=== PATIENT | female | born 1960 | race Two or more races ===

== ENCOUNTER 2019-11-25 19:10 | Inpatient (IN) | payer MEDICAID, OTHER ==
[~2019-11-25] VITALS: Ht 165.1 cm; Wt 81.7 kg
[2019-11-25 20:03] LABS: Urine WBC None Seen /hpf (0 - 5)
[2019-11-25 20:11] LABS: Urine Bacteria NONE SEEN /hpf (None Seen); Urine Blood 1+ /uL (Negative); Urine Mucus FEW (None Seen); Urine Specific Gravity 1.023 (1.001-1.035)
[2019-11-25] MEDS ORDERED: MORPHINE SULFATE 4 MG/ML SYR/VIAL IV ONE (21:15)
[2019-11-25] MEDS ORDERED: ONDANSETRON HCL 4 MG/2 ML VIAL IV ONE (21:15)
[2019-11-25] MEDS ORDERED: SODIUM CHLORIDE 0.9% 1,000 ML IV ONE (21:15)
[2019-11-25 22:19] LABS: Basophils # (auto) 0 10 ^3/uL (0-0.2); Basophils % (auto) 0.2 % (0.0-2.0); Eosinophils # (auto) 0 10 ^3/uL (0-0.8); Hematocrit 37.5 % (36.0-46.0); Hemoglobin 12.3 g/dL (12.2-16.2); Lymphocytes # (auto) 2.4 10 ^3/uL (0.4-5.4); Lymphocytes % (auto) 16.1 % (10.0-50.0); Mean Corpuscular Hgb Conc. 32.7 g/dL (32.0-36.0); Mean Corpuscular Volume 91.9 fL (80.0-100.0); Monocytes # (auto) 1.3 10 ^3/uL (0-1.3); Monocytes % (auto) 8.6 % (0.0-12.0); Neutrophils # (auto) 11.1 10 ^3/uL (1.6-8.6); Neutrophils % (auto) 75.1 % (37.0-80.0); Platelet Count (auto) 211 10^3/uL (140-450); Red Blood Cells 4.08 10^6/uL (4.0-5.20); Red Cell Distribution Width 15.3 % (11.8-14.3); White Blood Cell 14.8 10^3/uL (4.4-10.8)
[2019-11-25 22:40] LABS: Albumin 3.2 g/dL (3.4-5.0); Calcium 8.1 mg/dL (8.5-10.1); Potassium 3.6 mmol/L (3.5-5.1)
[2019-11-25 22:44] LABS: BUN/Creatinine Ratio 10.5; Bilirubin, Total 0.7 mg/dL (0.2-1.0); Total Protein 6.9 g/dL (6.4-8.2)
[2019-11-25] MEDS ORDERED: cefTRIAXone 1GM/50ML D5W 50 ML IV ONE (23:00)
[2019-11-25] MEDS ORDERED: metroNIDAZOLE 500MG/100ML 100 ML IV ONE (23:00)
[2019-11-25] MEDS ORDERED: HYDROcodone-ACET 5/325MG TAB PO PRN (23:30)
[2019-11-25] MEDS ORDERED: SODIUM CHLORIDE 0.9% 1,000 ML IV SCH ×2 (23:30)
[2019-11-25] MEDS ORDERED: TEMAZEPAM 15 MG CAP PO PRN (23:30)
[2019-11-25] MEDS ORDERED: LORazepam 0.5 MG TAB PO PRN (23:30)
[2019-11-25] MEDS ORDERED: DOCUSATE SOD 100 MG CAP PO PRN (23:30)
[2019-11-26] VITALS (7 sets, daily range): BP systolic 112–138; BP diastolic 54–71
[2019-11-26] MEDS: MORPHINE SULF INJ 2 MG/ML SYRINGE 1ML IV PRN ×2 (01:02→05:31)
[2019-11-26] MEDS: ONDANSETRON HCL 4 MG/2 ML VIAL IV PRN ×2 (01:02→05:25)
[2019-11-26] MEDS: ACETAMINOPHEN 325 MG TAB PO PRN (05:10)
[2019-11-26] MEDS: metroNIDAZOLE 500MG/100ML 100 ML IV SCH ×4 (05:31→23:44)
[2019-11-26 06:00] LABS: Basophils # (auto) 0 10 ^3/uL (0-0.2); Basophils % (auto) 0.2 % (0.0-2.0); Eosinophils # (auto) 0 10 ^3/uL (0-0.8); Hematocrit 36.2 % (36.0-46.0); Hemoglobin 11.9 g/dL (12.2-16.2); Lymphocytes # (auto) 2.6 10 ^3/uL (0.4-5.4); Lymphocytes % (auto) 15.7 % (10.0-50.0); Mean Corpuscular Hemoglobin 29.9 pg (28.0-32.0); Mean Corpuscular Hgb Conc. 32.7 g/dL (32.0-36.0); Mean Corpuscular Volume 91.4 fL (80.0-100.0); Monocytes % (auto) 6.1 % (0.0-12.0); Neutrophils # (auto) 12.7 10 ^3/uL (1.6-8.6); Platelet Count (auto) 213 10^3/uL (140-450); Red Blood Cells 3.96 10^6/uL (4.0-5.20); White Blood Cell 16.3 10^3/uL (4.4-10.8)
[2019-11-26 06:23] LABS: Calcium 7.8 mg/dL (8.5-10.1); Potassium 3.5 mmol/L (3.5-5.1)
[2019-11-26 06:26] LABS: BUN/Creatinine Ratio 11.5
[2019-11-26 06:56] LABS: Urine Bacteria FEW /hpf (None Seen); Urine Blood 1+ /uL (Negative); Urine Mucus FEW (None Seen); Urine Specific Gravity 1.018 (1.001-1.035); Urine WBC 19 /hpf (0 - 5)
[2019-11-26] MEDS: D5W/SOD CHL 0.45%/KCL 20MEQ 1,000 ML IV SCH ×2 (07:26→16:38)
[2019-11-26 07:40] LABS: INR 1.05 (0.9-1.15); Partial Thromboplastin Time 28.3 sec (23.0-31.2)
[2019-11-26] MEDS: cefTRIAXone 1GM/50ML D5W 50 ML IV SCH (09:05)
[2019-11-26] MEDS ORDERED: SUCCINYLCHOLINE CHLORIDE 20 MG/ML 10ML VIAL IV ONE (10:03)
[2019-11-26] MEDS ORDERED: MIDAZOLAM HCL 1MG/1ML-2 ML VIAL ONE (10:05)
[2019-11-26] MEDS ORDERED: fentaNYL CITRATE 100 MCG/2 ML VL ONE (10:05)
[2019-11-26] MEDS ORDERED: PROPOFOL 10 MG/ML 20 ML IV ONE (10:06)
[2019-11-26] MEDS ORDERED: ROCURONIUM 10MG/ML 10ML VIAL IV ONE (10:08)
[2019-11-26] MEDS ORDERED: ONDANSETRON HCL 4 MG/2 ML VIAL ONE (10:45)
[2019-11-26] MEDS ORDERED: GLYCOPYRROLATE 0.2 MG/ML 1ML VIAL ONE (10:56)
[2019-11-26] MEDS ORDERED: NEOSTIGMINE 1 MG/ML INJ (10mg/10ML VIAL) ONE (10:56)
[2019-11-26] MEDS ORDERED: HYDROmorphone HCL 2 MG/ML VL ONE (11:21)
[2019-11-26] MEDS: HYDROmorphone HCL 2 MG/ML VL IV PRN ×2 (11:22→11:57)
[2019-11-26] MEDS ORDERED: LABETALOL HCL 5 MG/ML 4ML SYRINGE IV PRN (11:30)
[2019-11-26] MEDS ORDERED: METOCLOPRAMIDE HCL 5MG/ml INJ 2ml VIAL IV PRN (11:30)
[2019-11-26] MEDS: FAMOTIDINE 20 MG TAB PO SCH (22:18)
[2019-11-27] MEDS: D5W/SOD CHL 0.45%/KCL 20MEQ 1,000 ML IV SCH ×2 (03:05→09:12)
[2019-11-27] MEDS: MORPHINE SULF INJ 2 MG/ML SYRINGE 1ML IV PRN (03:52)
[2019-11-27 05:00] VITALS: BP 110/56
[2019-11-27] MEDS: metroNIDAZOLE 500MG/100ML 100 ML IV SCH ×3 (05:54→17:08)
[2019-11-27] MEDS ORDERED: LORazepam 2MG/ML-1ML VIAL IV ONE (07:00)
[2019-11-27] MEDS ORDERED: ALBUTEROL SULF 2.5 MG/0.5ML(0.5%) NEB SOLN NEB PRN (07:00)
[2019-11-27] MEDS ORDERED: IPRATROPIUM BROM 0.5 MG/2.5ML INH SOL NEB PRN (07:00)
[2019-11-27 09:00] VITALS: BP 110/71
[2019-11-27] MEDS: ACETAMINOPHEN 325 MG TAB PO PRN ×2 (09:11→21:15)
[2019-11-27] MEDS: cefTRIAXone 1GM/50ML D5W 50 ML IV SCH (09:11)
[2019-11-27] MEDS: FAMOTIDINE 20 MG TAB PO SCH ×2 (09:11→21:14)
[2019-11-27] MEDS ORDERED: POTASSIUM CHL 20 Meq TABLET PO ONE (11:00)
[2019-11-27] MEDS ORDERED: FUROSEMIDE 20 MG/2 ML VIAL IV ONE (11:00)
[2019-11-27 13:00] VITALS: BP 116/60
[2019-11-27 13:23] VITALS: BP 110/64
[2019-11-27 17:00] VITALS: BP 119/68
[2019-11-27] MEDS: ONDANSETRON HCL 4 MG/2 ML VIAL IV PRN (21:15)
[2019-11-27 22:00] VITALS: BP 125/70
[2019-11-28] MEDS: metroNIDAZOLE 500MG/100ML 100 ML IV SCH ×4 (00:39→17:41)
[2019-11-28 05:00] VITALS: BP 113/72
[2019-11-28 06:06] LABS: Basophils # (auto) 0 10 ^3/uL (0-0.2); Basophils % (auto) 0.4 % (0.0-2.0); Eosinophils # (auto) 0 10 ^3/uL (0-0.8); Eosinophils % (auto) 0.1 % (0.0-7.0); Hematocrit 35.3 % (36.0-46.0); Hemoglobin 11.8 g/dL (12.2-16.2); Lymphocytes % (auto) 17.5 % (10.0-50.0); Mean Corpuscular Hemoglobin 30.5 pg (28.0-32.0); Mean Corpuscular Hgb Conc. 33.3 g/dL (32.0-36.0); Mean Corpuscular Volume 91.5 fL (80.0-100.0); Monocytes # (auto) 0.6 10 ^3/uL (0-1.3); Monocytes % (auto) 5.6 % (0.0-12.0); Neutrophils # (auto) 8.8 10 ^3/uL (1.6-8.6); Neutrophils % (auto) 76.4 % (37.0-80.0); Nucleated Red Blood Cells % 0.1 %; Platelet Count (auto) 191 10^3/uL (140-450); Red Blood Cells 3.86 10^6/uL (4.0-5.20); Red Cell Distribution Width 15.5 % (11.8-14.3); White Blood Cell 11.6 10^3/uL (4.4-10.8)
[2019-11-28 06:17] LABS: Potassium 3.1 mmol/L (3.5-5.1)
[2019-11-28 06:29] LABS: BUN/Creatinine Ratio 16.4; Calcium 8.4 mg/dL (8.5-10.1)
[2019-11-28 09:00] VITALS: BP 121/74
[2019-11-28] MEDS: cefTRIAXone 1GM/50ML D5W 50 ML IV SCH (09:03)
[2019-11-28] MEDS: FAMOTIDINE 20 MG TAB PO SCH (09:03)
[2019-11-28] MEDS ORDERED: POTASSIUM CHL 20 Meq TABLET PO ONE ×2 (09:45→18:00)
[2019-11-28] MEDS ORDERED: FUROSEMIDE 40 MG/4 ML VIAL IV ONE (09:45)
[2019-11-28] MEDS ORDERED: ALBUTEROL SULF 2.5 MG/0.5ML(0.5%) NEB SOLN NEB SCH ×2 (10:00→22:00)
[2019-11-28] MEDS ORDERED: ACETYLCYSTEINE 10 %(100MG/ML) SOL 4ML NEB SCH ×2 (10:00→14:00)
[2019-11-28] MEDS: ONDANSETRON HCL 4 MG/2 ML VIAL IV PRN (10:19)
[2019-11-28 13:00] VITALS: BP 123/60
[2019-11-28] MEDS ORDERED: METR500T PO (13:26)
[2019-11-28] MEDS ORDERED: ONDA-144 PO (13:26)
[2019-11-28] MEDS ORDERED: LEVO-28 PO (13:26)
[2019-11-28] MEDS ORDERED: FAMO-12 PO (13:26)
[2019-11-28 14:37] VITALS: BP 127/77
[2019-11-28 17:00] VITALS: BP 111/65
== END 2019-11-28 18:50 | disposition home or self-care (01) | DRG 710 ==
LOC: ER 19:10 → CENTRAL 19:11
PROVIDERS: ADMIT Hospitalist; ATTEND Internal Medicine
PROC: 0DTJ4ZZ Resection of Appendix, Percutaneous Endoscopic Approach (ICD-10-PCS; principal; 2019-11-26 10:10)
DX: A41.9 Sepsis, unspecified organism (principal); K35.80 Unspecified acute appendicitis; E66.01 Morbid (severe) obesity due to excess calories; E44.1 Mild protein-calorie malnutrition; Z68.30 Body mass index [BMI] 30.0-30.9, adult; Z20.828 Contact with and (suspected) exposure to other viral communicable diseases
CPT/HCPCS: 36415; 71045; 74176; 80048; 80053; 80061; 81001; 83036; 83690; 85025; 85610; 85730; 86850; 86900; 86901; 87040; 93005; 94640; G0378; J0330; J0696; J2250; J2405; J2704; J3490

== ENCOUNTER 2021-05-12 10:57 | Emergency (ER) | payer MEDICAID ==
[~2021-05-12] VITALS: Ht 154.9 cm; Wt 81.6 kg
[~2021-05-12 10:57] MED LIST: AMOX500C2 PO; FAMO-12 PO; METR500T PO; ONDA-144 PO
[2021-05-12 11:02] VITALS: BP 153/77
[2021-05-12 11:51] LABS: Basophils # (auto) 0.1 10 ^3/uL (0-0.2); Basophils % (auto) 0.9 % (0.0-2.0); Eosinophils # (auto) 0.1 10 ^3/uL (0-0.8); Eosinophils % (auto) 0.9 % (0.0-7.0); Hematocrit 38.1 % (36.0-46.0); Hemoglobin 13.1 g/dL (12.2-16.2); Lymphocytes # (auto) 3.1 10 ^3/uL (0.4-5.4); Lymphocytes % (auto) 39.3 % (10.0-50.0); Mean Corpuscular Hemoglobin 31.2 pg (28.0-32.0); Mean Corpuscular Hgb Conc. 34.3 g/dL (32.0-36.0); Mean Corpuscular Volume 90.9 fL (80.0-100.0); Monocytes # (auto) 0.4 10 ^3/uL (0-1.3); Monocytes % (auto) 4.8 % (0.0-12.0); Neutrophils # (auto) 4.2 10 ^3/uL (1.6-8.6); Neutrophils % (auto) 54.1 % (37.0-80.0); Nucleated Red Blood Cells % 0.1 %; Red Blood Cells 4.19 10^6/uL (4.0-5.20); Red Cell Distribution Width 15.7 % (11.8-14.3); White Blood Cell 7.8 10^3/uL (4.4-10.8)
[2021-05-12 12:26] LABS: Albumin 3.4 g/dL (3.4-5.0); BUN/Creatinine Ratio 20.8; Calcium 8.6 mg/dL (8.5-10.1); Potassium 3.9 mmol/L (3.5-5.1)
[2021-05-12 12:29] LABS: Bilirubin, Total 0.4 mg/dL (0.2-1.0); Total Protein 7.4 g/dL (6.4-8.2)
[2021-05-12 12:40] LABS: Urine Bacteria FEW /hpf (None Seen); Urine Blood 3+ /uL (Negative); Urine Specific Gravity 1.021 (1.001-1.035); Urine WBC 340 /hpf (0 - 5); Urine WBC Clumps PRESENT /hpf (None Seen)
[2021-05-12] MEDS ORDERED: NITR-87 PO (12:49)
[2021-05-12] MEDS ORDERED: TRAM-297 PO (12:49)
== END 2021-05-12 13:13 | disposition home or self-care (01) ==
LOC: ER 10:57
DX: N39.0 Urinary tract infection, site not specified (principal); D21.9 Benign neoplasm of connective and other soft tissue, unspecified; E78.5 Hyperlipidemia, unspecified; Z90.89 Acquired absence of other organs
CPT/HCPCS: 36415; 74176; 80053; 81001; 82150; 83690; 85025

== ENCOUNTER 2023-10-28 09:57 | Emergency (ER) | payer MEDICAID ==
[~2023-10-28] VITALS: Ht 152.4 cm; Wt 88.5 kg
[~2023-10-28 09:57] MED LIST changes: +NITR-87 PO; +TRAM-297 PO
[2023-10-28 10:51] VITALS: BP 146/80; PULSE 89; RESP 17; TEMP 98.6; O2SAT 95
[2023-10-28] MEDS: HYDROcodone-ACET 10/325MG TAB PO ONE (11:06)
[2023-10-28] MEDS ORDERED: METH-1182 PO (11:06)
[2023-10-28] MEDS ORDERED: IBUP-1456 PO (11:06)
[2023-10-28] MEDS: KETOROLAC TROMETH 60MG/2ML VIAL IM ONE (11:13)
[2023-10-28] MEDS: HYDROcodone-ACET 5/325MG TAB PO ONE (11:13)
== END 2023-10-28 11:34 | disposition home or self-care (01) ==
LOC: ER 09:57
DX: M51.16 Intervertebral disc disorders with radiculopathy, lumbar region (principal); E66.01 Morbid (severe) obesity due to excess calories; M19.90 Unspecified osteoarthritis, unspecified site; E78.5 Hyperlipidemia, unspecified; Z68.38 Body mass index [BMI] 38.0-38.9, adult; Z98.890 Other specified postprocedural states; Z79.899 Other long term (current) drug therapy
CPT/HCPCS: 72100; 96372; 99283; J1885

== ENCOUNTER 2024-04-13 13:53 | Emergency (ER) | payer MEDICAID ==
[~2024-04-13] VITALS: Ht 157.5 cm; Wt 87.7 kg
[~2024-04-13 13:53] MED LIST changes: +IBUP-1456 PO; +METH-1182 PO
--- NOTE | 2024-04-13 15:34 | ED.PDOC ---
Musculoskeletal HPI Comments A 63 YEAR OLD FEMALE PRESENTS TO THE ED WITH COMPLAINT OF LEFT FOOT PAIN AND PAINFUL URINATION. PATIENT STATES SHE HAS BEEN EXPERIENCING LEFT FOOT PAIN OFF AND ON FOR THE PAST 3 WEEKS. PATIENT REPORTS HER PAIN IS WORSE WITH MOVEMENT. PATIENT WAS ABLE TO BEAR WEIGHT AND WALK WITH A STABLE GAIT. PATIENT NOTES THAT SHE WAS ALSO BEEN EXPERIENCING PAINFUL URINATION FOR THE PAST 5 DAYS. PATIENT DENIES INJURY TO THE AFFECTED AREA, HEMATURIA, FLANK PAIN, FEVER, CHILLS, SHORTNESS OF BREATH, CHEST PAIN, ABDOMINAL PAIN, NAUSEA, VOMITING, HEADACHE, OR OTHER COMPLAINTS. NO OTHER SYMPTOMS OR MODIFYING FACTORS AT THIS TIME. PATIENT IS ALERT, ORIENTED X 4, AND HAS STEADY GAIT. Chief Complaint: Lower Extremity Time Seen by MD: 14:29 Primary Care Provider: LEE Reviewed Notes: Nurses Notes, Medications, Allergies Allergies: Coded Allergies: NO KNOWN ALLERGIES (Unverified , 11/25/19) Home Meds Active Scripts Ibuprofen (Ibuprofen) 800 Mg Tab, 1 TAB PO TID, #30 TAB Prov:EMELINA ESPARZA 04/13/24 Methocarbamol (Methocarbamol) 750 Mg Tab, 750 MG PO BID, #20 TAB Prov:EMELINA ESPARZA 10/28/23 Ibuprofen (Ibuprofen) 800 Mg Tab, 1 TAB PO TID, #30 TAB Prov:EMELINA ESPARZA 10/28/23 Tramadol Hcl (Ultram) 50 Mg Tab, 1 TAB PO Q6HR, #30 TAB Prov:MARGARITO MAYS MD 05/12/21 Nitrofurantoin Monohydrate Mac (Macrobid) 100 Mg Cap, 100 MG PO BID for 5 Days, #10 CAP Prov:MARGARITO MAYS MD 05/12/21 Amoxicillin Trihydrate (Amoxicillin) 500 Mg Cap, 1 CAP PO TID, #15 CAP Prov:JIMMY MORRIS MD 12/12/19 Famotidine (Famotidine) 20 Mg Tab, 20 MG PO Q12HR for 30 Days, #60 TAB Prov:JIMMY MORRIS MD 11/28/19 Ondansetron (Zofran) 4 Mg Tab, 1 TAB PO Q6HPRN PRN, #20 TAB Prov:JIMMY MORRIS MD 11/28/19 Metronidazole (Flagyl) 500 Mg Tab, 500 MG PO TID, #15 TAB Prov:JIMMY MORRIS MD 11/28/19 Information Source: Patient Mode of Arrival: Ambulatory Location: Left Extremity Location: Foot Timing: Weeks Prehospital treatment: None Severity: Moderate Able to Move Extremity: Yes Bear Weight: Fully Pain: Moderate Mechanism: No Trauma, Spontaneous Circumstances: Spontaneous Onset of Symptoms: Spontaneous Symptoms: Pain DVT Risk Factors: NONE Last Tetanus: Unknown Associated signs and symptoms: Foot pain (LEFT FOOT PAIN) Past Medical History PAST MEDICAL HISTORY: Anxiety, Arthritis, High Lipids, Thyroid Surgical History: Appendectomy, [employer] History: Denies all [employer] Hx Family History Family History: Reviewed,noncontributory to illness, Family hx of Cancer Social History Smoker: Non-Smoker Alcohol: Denies ETOH Use Drugs: Denies Drug Use Lives In: Home Constitutional: reports: others (ANXIOUS ); denies: chills, diaphoresis, fatigue, fever, malaise, sweats, weakness EENTM: denies: blurred vision, double vision, ear bleeding, ear discharge, ear drainage, ear pain, ear ringing, eye pain, eye redness, hearing loss, mouth pain, mouth swelling, nasal discharge, nose bleeding, nose congestion, nose pain, photophobia, tearing, throat pain, throat swelling, voice changes, others Respiratory: denies: cough, hemoptysis, orthopnea, SOB at rest, shortness of breath, SOB with excertion, stridor, wheezing, others Cardiovascular: denies: chest pain, dizzy spells, diaphoresis, Dyspnea on exer tion, edema, irregular heart beat, left arm pain, lightheadedness, palpitations, PND, syncope, others Gastrointestinal: denies: abdomen distended, abdominal pain, blood streaked bowels, constipated, diarrhea, dysphagia, difficulty swallowing, hematemesis, melena, nausea, poor appetite, poor fluid intake, rectal bleeding, rectal pain, vomiting, others Genitourinary: reports: burning; denies: abnormal vagina bleeding, dyspareunia, dysuria, flank pain, frequency, hematuria, incontinence, pain, , vagina discharge, urgency, others Neurological: denies: dizziness, fainting, headache, left sided numbness, left sided weakness, numbness, paresthesia, pre-existing deficit, right sided numbness, right sided weakness, seizure, speech problems, tingling, tremors, weakness, others Musculoskeletal: reports: joint pain, joint swelling, others (LEFT FOOT PAIN); denies: back pain, gout, muscle pain, muscle stiffness, neck pain Integumetry: denies: bruises, change in color, change in hair/nails, dryness, laceration, lesions, lumps, rash, wounds, others Allergic/Immunocompromised: denies: Difficulty Healing, Frequent Infections, Hives, Itching, others Hematologic/Lymphatic: denies: anemia, blood clots, easy bleeding, easy bruising, swollen glands, others Endocrine: denies: excessive hunger, excessive sweating, excessive thirst, excessive urination, flushing, intolerance to cold, intolerance to heat, unexplained weight gain, unexplained weight loss, others Psychiatric: denies: anxiety, bipolar disorder, depression, hopeless, panic disorder, schizophrenia, sleepless, suicidal, others All Other Systems: Reviewed and Negative Physical Exam General Appearance: No Apparent Distress, Obese HEENT: Normal ENT Inspection, PERRL/EOMI, Pharynx Normal, TMs Normal Neck: Full Range of Motion, Non-Tender, Normal, Normal Inspection Respiratory: Chest Non-Tender, Lungs Clear, No Accessory Muscle Use, No Respiratory Distress, Normal Breath Sounds Cardiovascular: No Edema, No JVD, No Murmur, No Gallop, Normal Peripheral Pulses, Regular Rate/Rhythm Breast Exam: Deferred Gastrointestinal: No Organomegaly, Non Tender, No Pulsatile Mass, Normal Bowel Sounds, Soft Genitalia: Deferred Pelvic: Deferred Rectal: Deferred Extremities: No calf tenderness, Normal capillary refill, Normal range of motion, No pedal edema, Tender (AND MILD SWELLING ON LEFT FOOT, NO BONY TENDERNESS AND DEFORMITY. ) Musculoskeletal : Apperance: Normal Neurologic: Alert, watch adjuster II-XII nml as Tested, No Motor Deficits, Normal Affect, Normal Mood, No Sensory Deficits Cerebellar Function: Normal Reflexes: Normal Skin: Dry, Normal Color, Warm Peripheral Pulses: 2+ carotid (R), 2+ carotid (L), 2+ dorsalis pedis (R), 2+ dorsalis pedis (L) Lymphatic: No Adenopathy Was a procedure done? Was a procedure done?: No Differential Diagnosis EXT Differential Diagnosis: Sprain, DJD, Strain, Arthritis, Bursitis X-Ray, Labs, Meds, VS Vital Signs Date Time Temp Pulse Resp B/P (MAP) Pulse Ox O2 Delivery O2 Flow Rate FiO2 04/13/24 15:54 91 18 131/88 (102) 98 04/13/24 15:54 91 18 99 Room Air 04/13/24 14:28 98.6 89 16 127/71 (89) 96 Lab Test 04/13/24 14:25 Range/Units Urine Color Light-yellow Yellow Urine Clarity Clear Clear Urine pH 5.5 5.0-9.0 Urine Specific [place] 1.021 1.001-1.035 Urine Protein Negative Negative Urine Ketones Negative Negative Urine Blood Trace H Negative /uL Urine Nitrite Negative Negative Urine Bilirubin Negative Negative Urine Urobilinogen Normal Negative mg/dL Urine Leukocyte Esterase Trace Negative /uL Urine RBC 2 0 - 4 /hpf Urine Microscopic WBC 1 0-5 /HPF Urine Squamous Epithelial Cells Few <5 /hpf Urine Bacteria None seen None Seen /hpf Urine Mucus Few None Seen Urine Glucose Normal Normal mg/dL Current Medications Medications (Trade) Dose Ordered Sig/Jaz Route Start Time Stop Time Status Last Admin Ketorolac Tromethamine (Toradol Injection) 60 mg ONCE ONCE IM 04/13/24 15:45 04/13/24 15:46 DC 04/13/24 15:54 CLINICAL INDICATION: PAIN, NO INJURY TECHNIQUE: 3 views of the left foot were performed. XY L FOOT 3 VIEW XRAY Comparison: None FINDINGS/IMPRESSION: : 1. No acute fracture or dislocation of the left foot. 2. Mild osteoarthritis of the IP joints of the toes. 3. Incidental findings include plantar calcaneal bone spur, Achilles insertion enthesophyte, plantar fascia calcifications, and accessory navicular bone. ATED BY: MANISH BRENNAN MD DICTATED DATE/TIME: 04/13/24 153 SIGNED BY: MANISH BRENNAN MD SIGNED DATE/TIME: 04/13/24 153 CC: X-Ray, Labs, Meds, VS Comment EXTERNAL MEDICAL RECORDS REVIEWED: [NONE] INDEPENDENT HISTORIANS: [NONE] SOCIAL DETERMINANTS OF HEALTH: [NONE] LABS ORDERED: UA REVIEWED AND INTERPRETED RESULTS: IMAGING ORDERED: XR FOOT LT TREATMENTS ORDERED: TORADOL 60 MG IM PROCEDURES PERFORMED: NONE CRITICAL CARE TIME: NONE I HAVE DISCUSSED THE PATIENT WITH THE ATTENDING PHYSICIAN DR. MAYS AND HE AGREES WITH THE PATIENT'S PLAN OF CARE AND DISPOSITION. BASED ON HISTORY OF PRESENT ILLNESS, AND PHYSICAL EXAM, PATIENT WILL BE DISCHARGED HOME. SHARED DECISION MAKING: PATIENT INSTRUCTED TO FOLLOW UP WITH PRIMARY CARE PROVIDER IN 1-2 DAYS FOR RE-EVALUATION OF SYMPTOMS. PATIENT VERBALIZES UNDERSTANDING TO RETURN TO ED FOR NEW OR WORSENING SYMPTOMS OR IF FOLLOW UP WITH PCP CANNOT BE OBTAINED. PATIENT FEELS COMFORTABLE GOING HOME AT THIS TIME. ALL QUESTIONS ADDRESSED AT TIME OF DISCHARGE. Images Reviewed?: Images reviewed and evaluated by me Time of 1ST Reevaluation: 16:31 Reevaluation 1ST: Improved Patient Education/Counseling: Diagnosis, Treatment, Need For Follow Up Family Education/Counseling: Diagnosis, Treatment, Need For Follow Up Medical Screening: No EMC Exist At This Time Departure 1 Departure Time of Disposition: 16:31 Impression: Primary Impression: Degenerative joint disease, foot, left Qualified Codes: M19.072 - Primary osteoarthritis, left ankle and foot Additional Impression: UTI symptoms Disposition: 01 HOME / SELF CARE / HOMELESS Condition: Stable Additional Instructions: FOLLOW-UP WITH PCP IN 1 TO 2 DAYS. TAKE MEDICATIONS PRESCRIBED. RETURN TO ED FOR ANY NEW OR WORSENING SYMPTOMS. e-Prescriptions Ibuprofen (Ibuprofen) 800 Mg Tab 1 TAB PO TID, #30 TAB Prov: EMELINA ESPARZA 04/13/24 Discharged With: Self Critical Care Note Critical Care Time?: No Stability Stability form required: No I personally scribed for EMELINA ESPARZA ([email or web address]) on 04/13/24 at 15:34. Electronically submitted by Eddie Gutierres ([employer]). I personally scribed for EMELINA ESPARZA ([email or web address]) on 04/13/24 at 15:43. Electronically submitted by Eddie Gutierres ([employer]). I personally scribed for EMELINA ESPARZA ([email or web address]) on 04/13/24 at 15:54. Electronically submitted by Eddie Gutierres ([employer]). EMELINA ESPARZA Apr 13, 2024 15:34
--- NOTE | 2024-04-13 15:39 | DVH ---
CLINICAL INDICATION: PAIN, NO INJURY TECHNIQUE: 3 views of the left foot were performed. XY L FOOT 3 VIEW XRAY Comparison: None FINDINGS/IMPRESSION: : 1. No acute fracture or dislocation of the left foot. 2. Mild osteoarthritis of the IP joints of the toes. 3. Incidental findings include plantar calcaneal bone spur, Achilles insertion enthesophyte, plantar fascia calcifications, and accessory navicular bone.
[2024-04-13 15:54] VITALS: BP 131/88; PULSE 91; RESP 18; O2SAT 99
[2024-04-13] MEDS: KETOROLAC TROMETH 60MG/2ML VIAL IM ONE (15:54)
[2024-04-13 15:57] LABS: Urine Bacteria None Seen /hpf (None Seen)
[2024-04-13 16:10] LABS: Urine Blood TRACE /uL (Negative); Urine Clarity Clear (Clear); Urine Color Light-Yellow (Yellow); Urine Mucus FEW (None Seen); Urine Protein, UAD Negative (Negative); Urine Specific Gravity 1.021 (1.001-1.035); Urine Squamous Epithelial Cell FEW /hpf (<5); Urine Urobilinogen Normal (Negative); Urine WBC 1 /HPF (0-5); Urine pH 5.5 (5.0-9.0)
== END 2024-04-13 16:38 | disposition home or self-care (01) ==
LOC: ER 13:53
DX: M19.072 Primary osteoarthritis, left ankle and foot (principal); R30.9 Painful micturition, unspecified; E78.5 Hyperlipidemia, unspecified; Z90.49 Acquired absence of other specified parts of digestive tract; Z79.1 Long term (current) use of non-steroidal anti-inflammatories (NSAID); Z79.899 Other long term (current) drug therapy
CPT/HCPCS: 73630; 81001; 96372; 99284; J1885